=== PATIENT | male | born 1995 | race Caucasian/White ===

== ENCOUNTER 2022-05-04 03:28 | Emergency (ER) | payer MEDICAID ==
[2022-05-04 04:25] LABS: Hematocrit 35.9 % (35.5-45.6); Hemoglobin 12.4 gm/dl (11.8-15.2); Mean Corpuscular HGB Conc 35 % (32-34); Mean Corpuscular Volume 82 fl (84-94); Platelet Count 280 K/mm3 (140-440); Red Blood Count 4.36 M/mm3 (3.65-5.03); Red Cell Distribution Width 14.6 % (13.2-15.2)
[2022-05-04 04:44] LABS: BUN/Creatinine Ratio 19; Blood Urea Nitrogen 15 mg/dL (9-20); Calcium 9.4 mg/dL (8.4-10.2); Hemolysis Index 7
[2022-05-04 05:56] LABS: Band Neutrophils # (Manual) 0.1 K/mm3; Basophils % (Manual) 0 % (0.0-1.8); Total Cells Counted 100
[2022-05-04 05:57] LABS: Platelet Estimate Consistent w Auto; RBC Morphology Normal
--- NOTE | 2022-05-04 09:29 | Emergency Department Report ---
ED Psych HPI - General Chief Complaint: Psych Stated Complaint: SUCIDICAL IDEALTIONS Time Seen by Provider: 05/04/22 08:02 Source: patient, EMS Mode of arrival: Ambulatory - History of Present Illness Initial Comments: 26-year-old male with a history of anxiety and depression who presents with suicidal ideation been going on intermittently for the last 2-month progressive getting worse in recent days. When asked patient denies any specific action or plan. Patient reported taking all his antipsychotic medication as prescribed. No recent fall or trauma reported. Patient denies any other modifying or associated factors. - Related Data Allergies Allergy/AdvReac Type Severity Reaction Status Date / Time No Known Allergies Allergy Unverified 05/04/22 03:42 ED Review of Systems ROS: Stated complaint: SUCIDICAL IDEALTIONS Other details as noted in HPI Comment: All other systems reviewed and negative Psychiatric: suicidal thoughts ED Physical Exam - General Limitations: No Limitations General appearance: alert, in no apparent distress - Head Head exam: Present: atraumatic, normal inspection - Eye Eye exam: Present: normal appearance Pupils: Present: normal accommodation - ENT ENT exam: Present: normal exam, normal orophraynx, mucous membranes moist - Neck Neck exam: Present: normal inspection - Respiratory Respiratory exam: Present: normal lung sounds bilaterally. Absent: respiratory distress, accessory muscle use - Cardiovascular Cardiovascular Exam: Present: regular rate, normal rhythm, normal heart sounds - GI/Abdominal GI/Abdominal exam: Present: soft, normal bowel sounds. Absent: distended, tenderness - Extremities Exam Extremities exam: Present: normal inspection. Absent: pedal edema - Back Exam Back exam: Absent: tenderness - Neurological Exam Neurological exam: Present: alert, oriented X3 - Psychiatric Psychiatric exam: Present: normal affect - Skin Skin exam: Present: warm, normal color ED Course Vital Signs 05/04/22 05/04/22 05/04/22 09:21 09:22 19:17 Temperature 97.7 F Pulse Rate 62 Respiratory 18 Rate Blood Pressure 126/62 [Left] O2 Sat by Pulse 98 98 100 Oximetry 05/04/22 05/05/22 21:50 02:41 Temperature 98 F 98.6 F Pulse Rate 88 88 Respiratory 18 18 Rate Blood Pressure 146/79 132/78 [Left] O2 Sat by Pulse 100 100 Oximetry - Reevaluation(s) Reevaluation #1: 05/04/22 09:28 here with suicidal ideation with no specific plan-- will go ahead and order routine psych labs and consult psychiatry for mental health evaluation-- Reevaluation #2: 05/04/22 09:32 Pt labs reviewed and ordered psych consulted and made 1013. ED Medical Decision Making - Lab Data Result diagrams: 05/04/22 04:17 05/04/22 04:17 Critical care attestation.: If time is entered above; I have spent that time in minutes in the direct care of this critically ill patient, excluding procedure time. ED Disposition Clinical Impression: Suicide ideation Disposition: 30 STILL A PATIENT Is pt being admited?: No Does the pt Need Aspirin: No Condition: Stable Referrals: MINA CHILDERS MD [Primary Care Provider] - 3-5 Days
--- NOTE | 2022-05-04 09:43 | Consultation ---
History of Present Illness - Reason for Consult Consult date: 05/04/22 Reason for consult: SI - History of Present Psychiatric Illness The patient was seen today. He says he presented to the ER for suicidal thoughts. When asked if he had a plan, the patient replies "whatever I can get my hands on and whatever will be the quickest." He says he's been feeling like this for awhile, but states he started feeling worse a few days ago. He says "things are not going as I planned in my life." He then says "I'm just going through a lot right now." He endorses feeling depressed. He states he has a history of Bipolar Disorder and been off his meds for about a year. He says he has not been sleeping well. He denies hallucinations. He denies illicit drug use or alcohol, but states he smokes a pack of cigarets daily. PAST PSYCHIATRIC HISTORY: Diagnoses: Bipolar Suicide attempts or Self-harm behavior: Yes Prior psychiatric hospitalizations: Yes Substance Abuse history: Nicotine Previous psychiatric medications tried: could not recall Outpatient treatment: Denies PAST MEDICAL HISTORY: None reported Family Psychiatric History: None reported or documented SOCIAL HISTORY Marital Status: Living Arrangements: Alone Employment Status: Unemployed Access to guns/weapons: Denies Education: History of Abuse: Denies Legal History: Denies REVIEW OF SYSTEMS Constitutional: Negative for weight loss ENT: Negative for stridor Respiratory: Negative for cough or hemoptysis All other systems reviewed and are negative MENTAL STATUS EXAMINATION General Appearance and Behavior: Age appropriate, wearing appropriate clothes, cooperative, polite with questioning, calm Cooperation: cooperative Psychomotor Behavior: Psychomotor normal Mood: Depressed Affect and affective range: congruent with stated affect Thought Process: Goal directed Thought Content: None Speech: Normal volume, Regular rate and rhythm Suicidal Ideation: Yes Homicidal Ideation: Denies Hallucination: Denies Delusions: None elicited Impulse Control: Limited Insight and Judgment: Limited Memory: Limited Attention: attentive Orientation: Alert and oriented Assessment Bipolar Disorder Treatment Plan [address] 125mg po BID Trazodone 50mg po qhs Sitter: Per primary Medical: Per primary Disposition: Recommend acute psychiatric inpatient treatment Will follow. Thanks Case staffed with Dr. Higuera Medications and Allergies Allergies Allergy/AdvReac Type Severity Reaction Status Date / Time No Known Allergies Allergy Unverified 05/04/22 03:42 Mental Status Exam - Vital signs Last Vital Signs Temp 97.7 F 05/04/22 09:21 Pulse 62 05/04/22 09:21 Resp 18 05/04/22 09:21 BP 126/62 05/04/22 09:21 Pulse Ox 98 05/04/22 09:22 Results Result Diagrams: 05/04/22 04:17 05/04/22 04:17 Abnormal lab results 05/04/22 05/04/22 05/04/22 Range/Units 04:17 04:17 04:17 MCV (84-94) fl MCHC (32-34) % Monocytes % (Manual) (0.0-7.3) % Eosinophils % (Manual) (0.0-4.3) % Potassium 3.5 L (3.6-5.0) mmol/L Salicylates < 0.3 L (2.8-20.0) mg/dL Acetaminophen 5.0 L (10.0-30.0) ug/mL 05/04/22 Range/Units 04:17 MCV 82 L (84-94) fl MCHC 35 H (32-34) % Monocytes % (Manual) 14.0 H (0.0-7.3) % Eosinophils % (Manual) 8.0 H (0.0-4.3) % Potassium (3.6-5.0) mmol/L Salicylates (2.8-20.0) mg/dL Acetaminophen (10.0-30.0) ug/mL All other labs normal.
[2022-05-04] MEDS: DIVALPROEX DR 125 MG TAB PO SCH ×2 (10:01→21:49)
--- NOTE | 2022-05-04 11:13 | Event Note ---
Date: 05/04/22 assessed by psych , medically cleared , vss no distress no events overnight , awaiting placement
[2022-05-04 11:15] LABS: Bilirubin,Urine Negative (Negative); Blood,Urine Negative (Negative); Color,Urine Yellow (Yellow); Protein,Urine <15 mg/dL mg/dL (Negative)
[2022-05-04 11:21] LABS: Benzodiazepines Screen,Urine Negative; Cocaine Screen,Urine Negative; Methadone Screen,Urine Negative; Opiate Screen,Urine Negative
[2022-05-04 11:24] LABS: Free T4 (Free Thyroxine) 0.91 ng/dL (0.76-1.46)
[2022-05-04 11:34] LABS: Mucus,Urine 3+ /HPF
[2022-05-04 11:55] LABS: Amphetamine Screen,Urine Positive; Cannabinoid Screen,Urine Positive
[2022-05-04] MEDS ORDERED: traZODone 50 MG TAB PO SCH (22:00)
[2022-05-05 02:42] VITALS: BP 132/78
== END 2022-05-05 02:15 | disposition still patient (30) ==
LOC: ED 03:28
DX: R45.851 Suicidal ideations (principal); Z20.822 Contact with and (suspected) exposure to COVID-19
CPT/HCPCS: 36415; 80048; 80307; 81001; 84439; 84443; 85007; 85025; 87086; 99285; U0003; 80320; G0480